=== PATIENT | male | born 2000 | race Two or more races ===

== ENCOUNTER 2024-02-03 19:09 | Emergency (ER) | payer OTHER ==
[~2024-02-03] VITALS: Ht 170.2 cm; Wt 76.2 kg
[2024-02-03] MEDS ORDERED: KETOROLAC TROMETHAMINE 30 MG VIAL IM STA (23:34)
== END 2024-02-04 00:01 | disposition home or self-care (01) ==
LOC: ER 19:10
DX: H60.92 Unspecified otitis externa, left ear (principal)